=== PATIENT | female | born 1995 | race American Indian/Alaskan Native ===

== ENCOUNTER 2017-05-26 22:03 | Emergency (ER) | payer OTHER ==
[~2017-05-26] VITALS: Ht 167.6 cm; Wt 104.3 kg
== END 2017-05-27 06:15 | disposition home or self-care (01) ==
LOC: ED 22:03
DX: F10.129 Alcohol abuse with intoxication, unspecified (principal); F17.200 Nicotine dependence, unspecified, uncomplicated
CPT/HCPCS: 99282

== ENCOUNTER 2017-10-13 23:19 | Emergency (ER) | payer OTHER ==
[~2017-10-13] VITALS: Ht 167.6 cm; Wt 104.3 kg
== END 2017-10-14 07:16 | disposition home or self-care (01) ==
LOC: ED 23:19
DX: F10.129 Alcohol abuse with intoxication, unspecified (principal); R45.6 Violent behavior; F17.200 Nicotine dependence, unspecified, uncomplicated
CPT/HCPCS: 99283

== ENCOUNTER 2017-10-30 19:51 | Emergency (ER) | payer OTHER ==
[~2017-10-30] VITALS: Ht 167.6 cm; Wt 104.3 kg
== END 2017-10-31 14:29 | disposition home or self-care (01) ==
LOC: ED 19:51
DX: R45.851 Suicidal ideations (principal); F10.129 Alcohol abuse with intoxication, unspecified; E66.01 Morbid (severe) obesity due to excess calories; F17.200 Nicotine dependence, unspecified, uncomplicated; Y90.8 Blood alcohol level of 240 mg/100 ml or more
CPT/HCPCS: 80053; 80176; 81001; 84443; 84703; 85025; 99284; G0480

== ENCOUNTER 2018-01-07 01:29 | Emergency (ER) | payer OTHER ==
[~2018-01-07] VITALS: Ht 167.6 cm; Wt 95.3 kg
== END 2018-01-07 03:08 | disposition home or self-care (01) ==
LOC: ED 01:29
DX: L02.414 Cutaneous abscess of left upper limb (principal); R23.8 Other skin changes; E66.01 Morbid (severe) obesity due to excess calories; F17.200 Nicotine dependence, unspecified, uncomplicated; Z23 Encounter for immunization
CPT/HCPCS: 90471; 90715; 96372; 99282; J0696

== ENCOUNTER 2018-03-14 06:39 | Emergency (ER) | payer OTHER ==
[~2018-03-14] VITALS: Ht 312.4 cm; Wt 89.8 kg
[2018-03-14] MEDS ORDERED: BACTRIM DS TAB1 EACH PO (08:13)
== END 2018-03-14 08:54 | disposition home or self-care (01) ==
LOC: ED 06:39
PROC: 0H94XZZ Drainage of Neck Skin, External Approach (ICD-10-PCS; principal; 2018-03-14)
DX: L02.11 Cutaneous abscess of neck (principal); F17.200 Nicotine dependence, unspecified, uncomplicated; E66.9 Obesity, unspecified
CPT/HCPCS: 10060; 99283

== ENCOUNTER 2018-03-15 23:17 | Emergency (ER) | payer OTHER ==
[~2018-03-15] VITALS: Ht 312.4 cm; Wt 89.8 kg
[~2018-03-15 23:17] MED LIST: BACTRIM DS TAB1 EACH PO
== END 2018-03-16 01:01 | disposition home or self-care (01) ==
LOC: ED 23:17
DX: Z48.817 Encounter for surgical aftercare following surgery on the skin and subcutaneous tissue (principal); F17.200 Nicotine dependence, unspecified, uncomplicated; E66.9 Obesity, unspecified; Z79.899 Other long term (current) drug therapy
CPT/HCPCS: 99282

== ENCOUNTER 2018-04-08 17:18 | Emergency (ER) | payer OTHER ==
[~2018-04-08] VITALS: Ht 312.4 cm; Wt 89.8 kg
--- OUTSIDE RECORDS SUMMARY | 2018-04-08 17:24 | XMS ---
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 Lexii has no Care Guidelines for this patient. [facility] MO[facility] NOTE: Visits indicate total known visits. ED/UCC VISIT TRACKING (12 MO.) 04/08/2018 17:19 [facility] TYPE: Emergency COMPLAINT: - POSS ABSCESS 03/15/2018 23:19 [facility] [place] TYPE: Emergency COMPLAINT: - RE CHECK NECK WOUND DIAGNOSES: - Obesity, unspecified - Other halfway (current) drug therapy - Nicotine dependence, unspecified, uncomplicated - Encounter for surgical aftercare following surgery on the skin and subcutaneous tissue 03/14/2018 06:40 [facility] [place] TYPE: Emergency COMPLAINT: - HEADACHE DIAGNOSES: - Cutaneous abscess of neck - Localized swelling, mass and lump, neck - Obesity, unspecified - Nicotine dependence, unspecified, uncomplicated 01/07/2018 01:30 [facility] TYPE: Emergency COMPLAINT: - L ARM ABSCESS DIAGNOSES: - Cutaneous abscess of left upper limb - Nicotine dependence, unspecified, uncomplicated - Other skin changes - Morbid (severe) obesity due to excess calories - Encounter for immunization 10/30/2017 19:51 [facility] [place] TYPE: Emergency COMPLAINT: - MEDICAL CLEARANCE DIAGNOSES: - Blood alcohol level of 240 mg/100 ml or more - Suicidal ideations - Morbid (severe) obesity due to excess calories - Nicotine dependence, unspecified, uncomplicated - Suicide attempt, initial encounter - Alcohol abuse with intoxication, unspecified - SUICIDE ATTEMPT, INITIAL ENCOUNTER 10/13/2017 23:20 [facility] [place] TYPE: Emergency COMPLAINT: - INTOXICATION DIAGNOSES: - Violent behavior - Nicotine dependence, unspecified, uncomplicated - Alcohol abuse with intoxication, unspecified 05/26/2017 22:03 [facility] [place] TYPE: Emergency COMPLAINT: - INTOXICATION DIAGNOSES: - Alcohol abuse with intoxication, unspecified - Nicotine dependence, unspecified, uncomplicated INPATIENT VISIT TRACKING (12 MO.) No inpatient visits to display in this time frame [id number]
== END 2018-04-08 17:35 | disposition home or self-care (01) ==
LOC: ED 17:18
DX: Z03.89 Encounter for observation for other suspected diseases and conditions ruled out (principal)

== ENCOUNTER 2018-08-05 02:22 | Emergency (ER) | payer OTHER ==
[~2018-08-05] VITALS: Ht 312.4 cm; Wt 89.8 kg
[2018-08-05] MEDS ORDERED: IBU-200200 MG PO (03:04)
[2018-08-05] MEDS ORDERED: TYLENOL325 M1 PO (03:04)
[2018-08-05] MEDS ORDERED: AMOXICILLIN500 MG PO (03:29)
== END 2018-08-05 03:47 | disposition home or self-care (01) ==
LOC: ED 02:22
DX: K08.89 Other specified disorders of teeth and supporting structures (principal); F17.200 Nicotine dependence, unspecified, uncomplicated; Z79.899 Other long term (current) drug therapy; E66.9 Obesity, unspecified
CPT/HCPCS: 99282

== ENCOUNTER 2018-09-18 20:16 | Emergency (ER) | payer OTHER ==
[~2018-09-18] VITALS: Ht 160 cm; Wt 89.8 kg
[~2018-09-18 20:16] MED LIST changes: +AMOXICILLIN500 MG PO; +IBU-200200 MG PO; +TYLENOL325 M1 PO
[2018-09-19] MEDS ORDERED: CARAFATE1 GM PO (05:30)
[2018-09-19] MEDS ORDERED: PROTONIX40 MG PO (05:30)
== END 2018-09-19 05:47 | disposition home or self-care (01) ==
LOC: ED 20:16
DX: Z00.8 Encounter for other general examination (principal); E66.9 Obesity, unspecified; F17.200 Nicotine dependence, unspecified, uncomplicated
CPT/HCPCS: 80053; 80176; 81001; 84443; 84703; 85025; 99283; G0480

== ENCOUNTER 2018-12-21 19:39 | Emergency (ER) | payer OTHER ==
[~2018-12-21] VITALS: Ht 160 cm; Wt 90.7 kg
[~2018-12-21 19:39] MED LIST changes: +CARAFATE1 GM PO; +PROTONIX40 MG PO
== END 2018-12-22 05:55 | disposition home or self-care (01) ==
LOC: ED 19:39
DX: F10.129 Alcohol abuse with intoxication, unspecified (principal)
CPT/HCPCS: 80053; 81001; 84703; 85025; 96361; 96374; 96375; 99284-25; G0480; J1630; J2060; J2405; J3411; J7030

== ENCOUNTER 2019-05-07 16:36 | Emergency (ER) | payer OTHER ==
[~2019-05-07] VITALS: Ht 160 cm; Wt 104.3 kg
[~2019-05-07 16:36] MED LIST changes: +HYDROXYZINE HCL25 MG PO
--- OUTSIDE RECORDS SUMMARY | 2019-05-07 16:38 | XMS ---
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 Care History Medical/Surgical 02/02/2019 [facility] \T\middot;\T\nbsp; PATIENT IS A [employer] MEMBER. \T\middot;\T\nbsp; PLEASE REFER PATIENT TO [facility] FOR NON EMERGENT MEDICAL NEEDS. \T\middot;\ T\nbsp; [facility] CAN SEE PATIENTS SAME DAY FOR APTS IF PATIENT CALLS FIRST THING IN THE MORNING. E.D. VISIT COUNT (12 MO.) 6 [facility] TOTAL 6 NOTE: Visits indicate total known visits. ED/UCC VISIT TRACKING (12 MO.) 05/07/2019 16:37 [facility] [place] TYPE: Emergency COMPLAINT: - HEADACHE/ INJ 02/02/2019 01:34 [facility] [place] TYPE: Emergency COMPLAINT: - SKIN ISSUES DIAGNOSES: - Essential (primary) hypertension - Factitial dermatitis - Nicotine dependence, unspecified, uncomplicated - Factitial dermatitis - Obesity, unspecified 02/01/2019 17:50 [facility] [place] TYPE: Emergency COMPLAINT: - SKIN ISSUES DIAGNOSES: - Essential (primary) hypertension - Factitial dermatitis - Disorder of the skin and subcutaneous tissue, unspecified 12/21/2018 19:39 [facility] TYPE: Emergency COMPLAINT: - ALT LOC DIAGNOSES: - Alcohol abuse with intoxication, unspecified 09/18/2018 20:17 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
[2019-05-07] MEDS ORDERED: CYCLOBENZAPRINE10 MG PO (17:33)
== END 2019-05-07 18:00 | disposition home or self-care (01) ==
LOC: ED 16:36
DX: S13.9XXA Sprain of joints and ligaments of unspecified parts of neck, initial encounter (principal); I10 Essential (primary) hypertension; E66.9 Obesity, unspecified; F17.200 Nicotine dependence, unspecified, uncomplicated; Y04.0XXA Assault by unarmed brawl or fight, initial encounter
CPT/HCPCS: 99283

== ENCOUNTER 2020-01-02 22:29 | Emergency (ER) | payer OTHER ==
[~2020-01-02] VITALS: Ht 160 cm; Wt 77.1 kg
[~2020-01-02 22:29] MED LIST changes: +CYCLOBENZAPRINE10 MG PO
== END 2020-01-02 23:23 | disposition home or self-care (01) ==
LOC: ED 22:29
DX: S81.811A Laceration without foreign body, right lower leg, initial encounter (principal); F17.200 Nicotine dependence, unspecified, uncomplicated; X58.XXXA Exposure to other specified factors, initial encounter
CPT/HCPCS: 90471; 90715; 99282-25

== ENCOUNTER 2022-11-24 14:25 | Emergency (ER) | payer OTHER ==
[~2022-11-24] VITALS: Ht 160 cm; Wt 97.5 kg
--- OUTSIDE RECORDS SUMMARY | 2022-11-24 14:28 | XMS ---
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 Care History Medical/Surgical 02/02/2019 [facility] PATIENT IS A [facility] MEMBER. PLEASE REFER PATIENT TO [facility] FOR NON EMERGENT MEDICAL NEEDS. [facility] CAN SEE PATIENTS SAME DAY FOR APTS IF PATIENT CALLS FIRST THING IN THE MORNING. E.D. VISIT COUNT (12 MO.) 1 [facility] TOTAL 1 NOTE: Visits indicate total known visits. ED/UCC VISIT TRACKING (12 MO.) 11/24/2022 14:26 [facility] [place] TYPE: Emergency COMPLAINT: - LT LEG PAIN INPATIENT VISIT TRACKING (12 MO.) No inpatient visits to display in this time frame [id number]
[2022-11-24] MEDS ORDERED: CYCLOBENZAPRINE10 MG PO (16:37)
[2022-11-24] MEDS ORDERED: MELOXICAM15 MG PO (16:37)
[2022-11-24 17:10] VITALS: BP 133/74
== END 2022-11-24 17:10 | disposition home or self-care (01) ==
LOC: ED 14:25
DX: S80.02XA Contusion of left knee, initial encounter (principal); F17.200 Nicotine dependence, unspecified, uncomplicated; E66.9 Obesity, unspecified; I10 Essential (primary) hypertension; W20.8XXA Other cause of strike by thrown, projected or falling object, initial encounter
CPT/HCPCS: 73560

== ENCOUNTER 2023-02-07 18:43 | Emergency (ER) | payer OTHER ==
[~2023-02-07] VITALS: Ht 160 cm; Wt 124.9 kg
--- OUTSIDE RECORDS SUMMARY | ~2023-02-07 | XMS | Continuity of Care Document ---
Demographics + + + | Address | [address] [place] [address] [address] | | | [place] [address] | + + + | Preferred Language | Unknown | + + + | Marital Status | Never | + + + | Lutheran Affiliation | Unknown | + + + | Race | or | + + + | Ethnic Group | Not or | + + + Author + + + | Author | [place] | + + + | Organization | [place] | + + + | Address | [address] | | | [place] [id number] | + + + | Phone | | + + + Care Team Providers + + + + | Care Business Administrator Name | Role | Phone | + + + + Unavailable | Unavailable | + + + + Unavailable | Unavailable | + + + + Allergies No information. Encounters No information. Functional Status No information. Immunizations + + + + | date | description | facility | + + + + | 2018-01-07 00:00 | Tdap | [facility] | + + + + | 2020-01-02 00:00 | Tdap | [facility] | + + + + Medications + + + + | date | description | facility | + + + + | 2022-11-24 00:00 | MELOXICAM | [facility] | + + + + | 2022-11-24 00:00 | Acetaminophen | [facility] | + + + + | 2018-09-19 00:00 | SUCRALFATE | [facility] | + + + + | 2018-09-19 00:00 | PANTOPRAZOLE SODIUM | [facility] | + + + + | 2018-08-05 00:00 | AMOXICILLIN | [facility] | + + + + | 2022-11-24 00:00 | Ibuprofen | [facility] | + + + + | 2019-05-07 00:00 | CYCLOBENZAPRINE HCL | [facility] | + + + + | 2022-11-24 00:00 | CYCLOBENZAPRINE HCL | [facility] | + + + + | 2018-03-14 00:00 | | [facility] | | | SULFAMETHOXAZOLE/TRIMETHOPR | | | | IM DS | | + + + + | 2019-02-01 00:00 | hydrOXYzine HCL | [facility] | + + + + Problems + + + + | date | description | facility | + + + + | 2017-05-26 00:00 | Acute alcoholic | [facility] | | | intoxication | | + + + + | 2017-05-27 00:00 | Alcoholic intoxication | [facility] | + + + + | 2017-10-13 00:00 | Violent behavior | [facility] | + + + + | 2017-11-14 00:00 | Encounter for medical | [facility] | | | screening examination | | + + + + | 2018-01-07 00:00 | Abscess of left forearm | [facility] | + + + + | 2018-03-16 00:00 | Encounter for wound | [facility] | | | re-check | | + + + + | 2018-08-05 00:00 | Periapical abscess | [facility] | + + + + | 2018-08-05 00:00 | Toothache | [facility] | + + + + | 2019-02-01 00:00 | Dermatitis factitia | [facility] | + + + + | 2019-05-07 00:00 | Neck sprain | [facility] | + + + + | 2020-01-02 00:00 | Laceration of right lower | [facility] | | | leg without complication | | + + + + | 2022-11-24 00:00 | Contusion of knee | [facility] | + + + + Procedures No information. Results/Labs No information. Social History No information. Vital Signs + + + +---------+ | date | measurement | value | units | + + + +---------+ | 2022-11-24 00:00 | BMI | 38.1 | kg/m2 | + + + +---------+ | 2022-11-24 00:00 | BP_diastolic | 74 | mmHg | + + + +---------+ | 2022-11-24 00:00 | BP_systolic | 133 | mmHg | + + + +---------+ | 2022-11-24 00:00 | heart_rate | 89 | /min | + + + +---------+ | 2022-11-24 00:00 | height_metric | 160.02 | cm | + + + +---------+ | 2022-11-24 00:00 | height_standard | 63 | in | + + + +---------+ | 2022-11-24 00:00 | o2_saturation | 99 | % | + + + +---------+ | 2022-11-24 00:00 | respiration_rate | 16 | /min | + + + +---------+ | 2022-11-24 00:00 | temperature_metric | 36.67 | C | | | | | | + + + +---------+ | 2022-11-24 00:00 | | 98 | F | | | temperature_standar | | | | | d | | | + + + +---------+ | 2022-11-24 00:00 | weight_metric | 97.52 | kg | + + + +---------+ | 2022-11-24 00:00 | weight_standard | 214.99 | lb | + + + +---------+ | 2022-11-24 00:00 | weight_standard | 215 | lb | + + + +---------+"
--- OUTSIDE RECORDS SUMMARY | ~2023-02-07 | XMS | Continuity of Care Document ---
Demographics + + + | Address | [address] [place] [address] [address] | | | [place] [address] | + + + | Preferred Language | Unknown | + + + | Marital Status | Never | + + + | Confucianist Affiliation | Unknown | + + + | Race | or | + + + | Ethnic Group | Not or | + + + Author + + + | Author | [place] | + + + | Organization | [place] | + + + | Address | [address] | | | [place] [phone] | + + + | Phone | | + + + Care Team Providers + + + + | Care Fund Accountant Name | Role | Phone | + + + + Unavailable | Unavailable | + + + + Unavailable | Unavailable | + + + + Allergies No information. Encounters No information. Functional Status No information. Immunizations + + + + | date | description | facility | + + + + | 2018-01-07 00:00 | Tdap | [facility] | + + + + | 2020-01-02 00:00 | Tdap | [facility] | + + + + Medications + + + + | date | description | facility | + + + + | 2022-11-24 00:00 | MELOXICAM | [facility] | + + + + | 2022-11-24 00:00 | Acetaminophen | [facility] | + + + + | 2018-09-19 00:00 | SUCRALFATE | [facility] | + + + + | 2018-09-19 00:00 | PANTOPRAZOLE SODIUM | [facility] | + + + + | 2018-08-05 00:00 | AMOXICILLIN | [facility] | + + + + | 2022-11-24 00:00 | Ibuprofen | [facility] | + + + + | 2019-05-07 00:00 | CYCLOBENZAPRINE HCL | [facility] | + + + + | 2022-11-24 00:00 | CYCLOBENZAPRINE HCL | [facility] | + + + + | 2018-03-14 00:00 | | [facility] | | | SULFAMETHOXAZOLE/TRIMETHOPR | | | | IM DS | | + + + + | 2019-02-01 00:00 | hydrOXYzine HCL | [facility] | + + + + Problems + + + + | date | description | facility | + + + + | 2017-05-26 00:00 | Acute alcoholic | [facility] | | | intoxication | | + + + + | 2017-05-27 00:00 | Alcoholic intoxication | [facility] | + + + + | 2017-10-13 00:00 | Violent behavior | [facility] | + + + + | 2017-11-14 00:00 | Encounter for medical | [facility] | | | screening examination | | + + + + | 2018-01-07 00:00 | Abscess of left forearm | [facility] | + + + + | 2018-03-16 00:00 | Encounter for wound | [facility] | | | re-check | | + + + + | 2018-08-05 00:00 | Periapical abscess | [facility] | + + + + | 2018-08-05 00:00 | Toothache | [facility] | + + + + | 2019-02-01 00:00 | Dermatitis factitia | [facility] | + + + + | 2019-05-07 00:00 | Neck sprain | [facility] | + + + + | 2020-01-02 00:00 | Laceration of right lower | [facility] | | | leg without complication | | + + + + | 2022-11-24 00:00 | Contusion of knee | [facility] | + + + + Procedures No [...]
[~2023-02-07 18:43] MED LIST changes: +MELOXICAM15 MG PO
--- OUTSIDE RECORDS SUMMARY | 2023-02-07 18:46 | XMS ---
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 Care History Medical/Surgical 02/02/2019 [facility] PATIENT IS A [facility] MEMBER. PLEASE REFER PATIENT TO [facility] FOR NON EMERGENT MEDICAL NEEDS. [facility] CAN SEE PATIENTS SAME DAY FOR APTS IF PATIENT CALLS FIRST THING IN THE MORNING. E.D. VISIT COUNT (12 MO.) [address] [facility] TOTAL 2 NOTE: Visits indicate total known visits. ED/UCC VISIT TRACKING (12 MO.) 02/07/2023 18:44 [facility] [place] TYPE: Emergency COMPLAINT: - HARD TO BREATH, COUGH 11/24/2022 14:26 [facility] [place] TYPE: Emergency COMPLAINT: - LT LEG PAIN/ NO INJ DIAGNOSES: - Contusion of left knee, initial encounter - Essential (primary) hypertension - Nicotine dependence, unspecified, uncomplicated - Obesity, unspecified - Other cause of strike by thrown, projected or falling object, initial encounter - Pain in left knee INPATIENT VISIT TRACKING (12 MO.) No inpatient visits to display in this time frame [id number]
[2023-02-08 00:51] VITALS: BP 147/84
--- NOTE | 2023-02-08 13:18 | EKG ---
[facility] [address] [place], [place] [address] Signed Normal sinus rhythm Normal ECG No previous ECGs available Confirmed by RADHA RODRIGUEZ MD ([id number]) on 02/08/2023 1:17:51 PM Electronically Signed By: RADHA RODRIGUEZ 02/08/23 1317 PATIENT NAME: ANDREA OZUNA Electrocardiogram DATE OF : [birth year] PHYSICIAN: RADHA RODRIGUEZ REPORT #: [id number] REPORT IS CONFIDENTIAL AND NOT TO BE RELEASED WITHOUT AUTHORIZATION
== END 2023-02-08 00:55 | disposition home or self-care (01) ==
LOC: ED 18:43
DX: U07.1 COVID-19 (principal); M94.0 Chondrocostal junction syndrome [Tietze]; R91.1 Solitary pulmonary nodule; I10 Essential (primary) hypertension; E66.9 Obesity, unspecified; F17.200 Nicotine dependence, unspecified, uncomplicated
CPT/HCPCS: 36415; 71045; 71260; 80053; 83690; 84703; 85025; 85379; 87502; 93005; 93010; C9803; J1885; U0002